=== PATIENT | female | born 1995 | race African-American/Black ===

== ENCOUNTER 2016-04-08 20:22 | Emergency (ER) | payer OTHER ==
[2016-04-08] MEDS ORDERED: PENICILLIN G BENZATHINE 2 ML SYRG IM ONE ×2 (21:15→21:24)
--- OUTSIDE RECORDS SUMMARY | 2016-04-08 21:29 | XMS REPORT | Continuity of Care Document ---
:1995 Author Organization [facility] ([facility]) Address [address] [place] [address] Phone [phone] Care Team Providers Name Role Phone Bryon Rice Primary Care Provider [phone] Source Comments This disclosure is being made pursuant to the Care Everywhere program, applicable federal and state laws, and may not contain all informaitonavailable regarding this patient.[facility] ([facility]) Active Allergies and Adverse Reactions No Known Allergies Current Medications Prescription Sig. Disp. Refills Start Date End Date Status ferrous sulfate 325 mg Take 1 Tab by mouth 60 Tab 1 03/13/2013 Active (65 mg iron) tablet 2 times daily. Indications: IRON DEFICIENCY ANEMIA Pump Set misc Breast Pump. 1 1 Each 0 03/13/2013 Active Device Daily Indications: multivitamin Take 1 Tab by mouth Active with minerals 27-0.8 mg daily tablet Active Problems Problem Noted Date Anemia, 03/12/2013 Pre-eclampsia 03/12/2013 Immunizations Name Dates Previously Given Next Due Influenza, quadrivalent PF 03/13/2013 Social History Tobacco Use Types Packs/Day Years Used Date Never Smoker Smokeless Tobacco: Never Used Alcohol Use Drinks/Week oz/Week Comments No Last Filed Vital Signs Vital Sign Reading Time Taken Blood Pressure 118/76 08/26/2014 12:35 AM CDT Pulse 82 08/26/2014 12:35 AM CDT Temperature 36.7 C (98.1 F) 08/26/2014 12:35 AM CDT Respiratory Rate 18 08/26/2014 12:35 AM CDT Height 1.702 m (5' 7") 08/07/2014 1:21 PM CDT Weight 126.7 kg (279 lb 5.2 oz) 08/07/2014 1:21 PM CDT Body Mass Index 43.74 08/07/2014 1:21 PM CDT Oxygen Saturation 97% 08/26/2014 12:35 AM CDT Plan of Care Health Maintenance Due Date Last Done Comments Hepatitis B Vaccine (1 of 3 - Primary Series) 1995 HPV Vaccine (1 of 3 - Female/Unknown 3 Dose Series) 2006 Tdap Vaccine 2006 Meningococcal Vaccine (1 of 1) 2011 Lipid Disorder Screening 2013 MMR Vaccine 2013 Td Vaccine 2013 Varicella Vaccine (1 of 2 - Adult - No Evidence of 2013 Immunity) Influenza Vaccine: Seasonal (#1) 09/15/2015 03/13/2013 Results from Last 3 Months Not on file
[2016-04-08] MEDS ORDERED: METHYLPREDNISOLONE SOD SUCC/PF 40 MG/ML VIAL IM ONE (21:45)
--- NOTE | 2016-04-08 21:48 | ERNOTE ---
ENT HPI Date of Service: 04/08/16 Time Seen by Provider: 04/08/16 21:14 Source: patient - Immun/Allergies/Home Medications Immunizations: IMMUNIZATION HX Immunizations Up to Date Yes History of Influenza Vaccine No Hx Pneumococcal Vaccination No Allergies/Adverse Reactions: Allergies Allergy/AdvReac Type Severity Reaction Status Date / Time No Known Allergies Allergy Verified 04/08/16 20:43 Home Medications: HOME MEDICATIONS predniSONE [Prednisone] 3 tab PO DAILY #9 tab 04/08/16 [Last Taken Unknown] - History of Present Illness Narrative: Pt presents to ED with c/o sore throat. Rates pain at 5/10 in throat. Pt states she has body aches and rates it at 7/10. Pt states this started this am around 02:30. Pt admits to having nausea without vomiting. Pt had bowel movement today. Pt admits to nasal congestion, nasal drainage, non-productive intermittent cough. Pt denies shortness of breath and chest pain. Pt states she only wants to rest. Nothing makes the pain better. Date (Duration): 04/08/16 Time (Timing): 02:30 Severity: Present: mild ENT Location: Present: throat Prearrival Treatment: Present: no prearrival treatment Review of Systems - Review of Systems Constitutional: Present: fever. Absent: chills, weakness, weight loss, decreased activity level EYE: Present: no symptoms reported. Absent: eye pain, vision changes ENT: Present: nose congestion, nasal drainage, sore throat, throat swelling. Absent: ear pain, nose pain Respiratory: Present: cough - non-productive intermittent cough. Absent: shortness of breath, wheezing Cardiology: Present: no symptoms reported. Absent: chest pain, palpitations Gastrointestinal/Abdominal: Present: nausea. Absent: vomiting, diarrhea, constipation, abdominal pain, eating less, drinking less Genitourinary: Present: no symptoms reported. Absent: frequency, pain, dysuria Musculoskeletal: Present: no symptoms reported. Absent: back pain, muscle pain Skin: Present: no symptoms reported. Absent: rash, dryness Neurological: Present: no symptoms reported. Absent: anxiety, depressed, headache, dizziness/light-headedness, weakness Endocrine: Present: no symptoms reported. Absent: intolerance to heat, intolerance to cold Hematologic/Lymphatic: Present: no symptoms reported. Absent: easy bruising Psych: Present: no symptoms reported. Absent: anxiety, depressed All Other Systems: All systems neg except as marked - Patient's Past Medical History Patient History - Medical: No pertinent hx Patient History - Cardiac/Respiratory: No pertinent hx Patient History - Cancer: No Hx of Cancer Patient History - Surgical Procedures: No surgical history Patient History - Other: None LMP (Calendar): 02/06/15 - Family History Mother Family History - Cardiac/Respiratory: Myocardial Infarction - Social History Living Situations: home Abuse History: No History of abuse Psych History: Hx of Anxiety, Hx of Depression Smoking Status: Never smoker Alcohol Use: none Drug Use: none - Immunizations Immunizations Up to Date: Yes Hx Pneumococcal Vaccination: No History of Influenza Vaccine: No Physical Exam - Physical Exam General Appearance: Present: wd/wn, alert, no apparent distress, active, attentive for age. Absent: anxious, lethargic Eye Exam: Normal inspection: bilateral, PERRL: bilateral, EOMI: bilateral Ears, Nose, Throat: Present: hearing grossly normal, nasal congestion, sinus pain/drainage, pharyngeal erythema, pharyngeal swelling, tonsillar exudate, tonsillar swelling, other - no peritonsillar abscess noted. Absent: abnormal TM (R), abnormal TM (L), cerumen impaction Neck: Present: normal inspection, nontender, full range of motion Respiratory: Present: no respiratory distress, normal breath sounds, no accessory muscle use, chest nontender, lungs clear. Absent: chest tenderness, respiratory distress, accessory muscle use, decreased breath sounds, crackles, rales, rhonchi, stridor, wheezing, pleural rub Cardiovascular/Chest: Present: regular rate, rhythm, no murmur, normal peripheral pulses. Absent: tachycardia, bradycardia Gastrointestinal/Abdominal: Present: normal bowel sounds, nontender, nondistended, soft, no organomegaly. 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 Absent: skin rash Lymphatic Exam: Present: no adenopathy ED Progress - Results and Orders Patient's Lab Results:: I have reviewed the patient's lab results. - Vital Signs Patient's Vital Signs:: I have reviewed the patient's vital signs. Vital Signs: Vital Signs 04/08/16 20:30 Temperature 36.6 C Pulse Rate 103 H Respiratory 18 Rate Blood Pressure 133/72 O2 Sat by Pulse 99 Oximetry - Progress/Reassessment Chief Complaint: Sore Throat Departure Clinical Impression: Strep throat - Departure Disposition: Home self-care Condition: Good Instructions: Strep Throat, [id number], Form - Excuse from Work, School, or Physical Activity Additional Instructions: Follow up with primary care provider in 2 to 3 days. Contagious for 24 hours after antibiotic was given. Throw out toothbrush and get a new one. No sharing utensils or anything that comes into contact with mouth. Return to work on 04/10. Referrals: Bryon Rice DO [Primary Care Provider] - Prescriptions: predniSONE [Prednisone] 3 tab PO DAILY #9 tab
[2016-04-08] MEDS ORDERED: METHYLPREDNISOLONE SOD SUCC/PF 40 MG/ML VIAL ONE (21:50)
[2016-04-08 22:08] VITALS: BP 135/81
== END 2016-04-08 21:55 | disposition home or self-care (01) ==
LOC: ER 20:22
DX: J02.0 Streptococcal pharyngitis (principal)

== ENCOUNTER 2016-07-25 09:20 | Emergency (ER) | payer OTHER ==
[2016-07-25] MEDS ORDERED: DEXAMETHASONE SOD PHOSPHATE 10 MG/ML VIAL IM ONE (10:02)
[2016-07-25] MEDS ORDERED: DEXAMETHASONE SOD PHOSPHATE 10 MG/ML VIAL ONE (10:10)
[2016-07-25] MEDS ORDERED: CLINDAMYCIN PHOSPHATE 150 MG/ML VIAL IM ONE (10:11)
[2016-07-25] MEDS ORDERED: KETOROLAC TROMETHAMINE 60 MG/2 ML VIAL IM ONE ×2 (10:14→10:17)
--- OUTSIDE RECORDS SUMMARY | 2016-07-25 10:15 | XMS REPORT | Continuity of Care Document ---
:1995 Author Organization [facility] ([facility]) Address [address] [place] [address] Phone [phone] Care Team Providers Name Role Phone Bryon Rice Primary Care Provider [phone] Source Comments This disclosure is being made pursuant to the Care Everywhere program, applicable federal and state laws, and may not contain all informaitonavailable regarding this patient.[facility] ([facility]) Active Allergies and Adverse Reactions No [...]
--- NOTE | 2016-07-25 10:21 | ERNOTE ---
ENT HPI Date of Service: 07/25/16 Presenting Symptoms: other - sore throat Time Seen by Provider: 07/25/16 10:02 Exam Limitations: no limitations - Immun/Allergies/Home Medications Immunizations: IMMUNIZATION HX Immunizations Up to Date Yes History of Influenza Vaccine No Hx Pneumococcal Vaccination No Allergies/Adverse Reactions: Allergies Allergy/AdvReac Type Severity Reaction Status Date / Time No Known Allergies Allergy Verified 07/25/16 09:31 Home Medications: HOME MEDICATIONS Clarithromycin [Biaxin] 500 mg PO BID #20 tablet 07/25/16 [Last Taken Unknown] HYDROcodone/ACETAMINOPHEN [Hydrocodon-Acetaminophen 5-325] 1 each PO TID PRN # 20 tablet 07/25/16 [Last Taken Unknown] - History of Present Illness Narrative: 21-year-old female presenting to the emergency room for sore throat. Patient states that the sore throat started on Tuesday this week then on Tuesday she went to the walk-in clinic where it was she was tested negative for strep. Patient states she is in a lot of pain and it hurts to swallow. Date (Duration): 07/25/16 Severity: Present: moderate ENT Location: Present: throat Prearrival Treatment: Present: no prearrival treatment, other - tested for strep on tuesday and was negative Modifying Factors - Improves: Reports: nothing Modifying Factors - Worsens: Reports: nothing Associated Symptoms - ENT: Reports: poor fluid intake, voice change, sore throat Prior Treament: Reports: recently seen Review of Systems - Narrative Narrative: pain with swallowing and sore throat - Review of Systems Constitutional: Present: See HPI EYE: Present: no symptoms reported ENT: Present: See HPI Respiratory: Present: no symptoms reported Cardiology: Present: no symptoms reported Gastrointestinal/Abdominal: Present: no symptoms reported Genitourinary: Present: no symptoms reported Musculoskeletal: Present: no symptoms reported Skin: Present: no symptoms reported Neurological: Present: no symptoms reported Endocrine: Present: no symptoms reported Hematologic/Lymphatic: Present: no symptoms reported Psych: Present: no symptoms reported All Other Systems: All systems neg except as marked - Patient's Past Medical History Patient History - Medical: No pertinent hx Patient History - Cardiac/Respiratory: No pertinent hx Patient History - Cancer: No Hx of Cancer Patient History - Surgical Procedures: No surgical history Patient History - Other: None LMP (Calendar): 02/06/15 - Family History Mother Family History - Cardiac/Respiratory: Myocardial Infarction - Social History Living Situations: home Abuse History: No History of abuse Psych History: Hx of Anxiety, Hx of Depression Alcohol Use: none Drug Use: none - Immunizations Immunizations Up to Date: Yes Hx Pneumococcal Vaccination: No History of Influenza Vaccine: No Physical Exam - Physical Exam Narrative: Patient's tonsils are +4 touching with several large pus pockets observed both tonsils. Patient's throat is red and erythematous. Appears to be in discomfort with swallowing. 2 small lymph nodes along the jawline bilaterally were felt during exam General Appearance: Present: wd/wn, alert, mild distress Eye Exam: Normal inspection: bilateral Ears, Nose, Throat: Present: normal except -, pharyngeal erythema, pharyngeal swelling, tonsillar exudate, tonsillar swelling Neck: Present: normal inspection, nontender, full range of motion Respiratory: Present: no respiratory distress, normal breath sounds, no accessory muscle use, chest nontender, lungs clear. Absent: chest tenderness, respiratory distress, decreased breath sounds, expiration (prolonged), crackles , rales, rhonchi, stridor, wheezing Cardiovascular/Chest: Present: regular rate, rhythm, no murmur, normal peripheral pulses Gastrointestinal/Abdominal: Present: normal bowel sounds, nontender, soft Back Exam: Present: normal inspection, normal range of motion, no CVA tenderness , no vertebral tenderness Extremity Exam: Present: normal inspection, non-tender, normal range of motion, no edema Neurological Exam: Present: alert, oriented, normal mood/affect, no motor/ sensory deficits Skin Exam: Present: normal color, warm/dry Lymphatic Exam: Present: no adenopathy ED Progress - Results and Orders Patient's Lab Results:: I have reviewed the patient's lab results. Results and Orders: negative strep - Vital Signs Patient's Vital Signs:: I have reviewed the patient's vital signs. Vital Signs: Vital Signs 07/25/16 09:28 Temperature 36.6 C Pulse Rate 108 H Respiratory 12 Rate Blood Pressure 142/60 O2 Sat by Pulse 98 Oximetry - Progress/Reassessment Chief Complaint: Sore Throat Progress:: Improved Plan - Plan Plan: Patient is to follow up with her primary care provider in the next 2-3 days if her symptoms do not subside. Departure Clinical Impression: Tonsillitis with exudate - Departure Disposition: Home Follow Up Needed Condition: Stable Instructions: Tonsillitis, [id number], Form - Excuse from Work, School, or Physical Activity Additional Instructions: Take all prescribed antibiotic medications until they are gone. Follow-up with your primary care if your symptoms have not started to subside in the next few days. Return to the emergency rooms if symptoms are unable to be controlled with medication. Return to the emergency room if you have a fever and it is not able to be controlled with [id number] medication. Referrals: Bryon Rice DO [Primary Care Provider] - Prescriptions: Clarithromycin [Biaxin] 500 mg PO BID #20 tablet HYDROcodone/ACETAMINOPHEN [Hydrocodon-Acetaminophen 5-325] 1 each PO TID PRN # 20 tablet PRN Reason: Pain
[2016-07-25 10:36] VITALS: BP 136/82
== END 2016-07-25 10:59 | disposition home or self-care (01) ==
LOC: ER 09:20
DX: J03.90 Acute tonsillitis, unspecified (principal)